=== PATIENT | female | born 1955 | race Caucasian/White ===

== ENCOUNTER → 2017-12-16 | Outpatient (CLI) | payer OTHER ==
[~2017-12-16] MED LIST: ARIMIDEX; ASPIRIN81 M2; CALCIUM 500 +1 EAC4 PO; CLEOCIN HCL300 MG; CORTEF5 MG PO; FOSAMAX 70 MG T70 MG; KEYTRUDA50 MG IV; LEVOTHYROXINE0.05 MG PO; MULTIVITAMINS1 EAC7 PO; PAXIL20 MG PO; PERCOCET 5-3251 EACH PO; PHENERGAN TOP; PREDNISONE 20 M20 MG PO; PROTONIX40 M1 PO
== END ==
LOC: M.LAB 07:10
DX: C43.9 Malignant melanoma of skin, unspecified (principal)

== ENCOUNTER → 2018-03-08 | Outpatient (CLI) | payer OTHER | LOC: M.RAD 08:01 | DX: Z12.31 Encounter for screening mammogram for malignant neoplasm of breast (principal) ==

== ENCOUNTER → 2019-04-06 | Outpatient (CLI) | payer OTHER | LOC: M.RAD 10:00 | DX: Z12.31 Encounter for screening mammogram for malignant neoplasm of breast (principal) ==

== ENCOUNTER → 2019-05-11 | Outpatient (CLI) | payer OTHER | LOC: M.RAD 11:36 | DX: C43.9 Malignant melanoma of skin, unspecified (principal); C50.911 Malignant neoplasm of unspecified site of right female breast ==

== ENCOUNTER → 2019-05-30 | Outpatient (CLI) | payer OTHER | LOC: M.RAD 15:23 | DX: M85.89 Other specified disorders of bone density and structure, multiple sites (principal) ==

== ENCOUNTER → 2019-08-29 | Outpatient (CLI) | payer OTHER | LOC: M.RAD 13:20 | DX: C79.9 Secondary malignant neoplasm of unspecified site (principal); J15.8 Pneumonia due to other specified bacteria ==

== ENCOUNTER 2019-10-29 16:07 | Emergency (ER) | payer MEDICARE ==
[~2019-10-29] VITALS: Ht 160 cm; Wt 71.7 kg
[2019-10-29] MEDS ORDERED: PREDNISONE 10 M10 M1 PO (16:26)
[2019-10-29 17:01] LABS: ABSOLUTE BASOPHILS 0.1 thou/uL (0.0-0.2); ABSOLUTE LYMPHOCYTES 1.1 thou/uL (0.8-5.3); ABSOLUTE MONOCYTES 0.4 thou/uL (0.0-1.2); ABSOLUTE NEUTROPHILS 8.2 thou/uL (1.6-8.1); BASOPHILS 0.8 %; EOSINOPHILS 0.3 %; HEMATOCRIT 43.8 % (37.0-47.0); HEMOGLOBIN 15.1 gm/dL (12.0-15.0); LYMPHOCYTES 11.7 %; MCH 32.1 pg (26.0-34.0); MCHC 34.4 g/dL (28.0-37.0); MCV 93.3 fL (80.0-100.0); MONOCYTES 4.5 %; NUCLEATED RBCS 0 /100WBC; PLATELET COUNT* 267 thou/uL (150-400); POLYS 82.7 %; RBC 4.69 mil/uL (4.20-5.00); RDW-CV 12.7 % (10.5-14.5); WBC 9.9 thou/uL (4.0-11.0)
[2019-10-29 17:05] LABS: CALCIUM 9.9 mg/dL (8.5-10.1); CREATININE 1.1 mg/dL (0.6-1.3); POTASSIUM 4.1 mmol/L (3.5-5.1)
[2019-10-29 17:09] LABS: ALBUMIN 4.1 g/dL (3.4-5.0); TOTAL BILIRUBIN 0.3 mg/dL (<0.1-1.0); TOTAL PROTEIN 7.8 g/dL (6.4-8.2)
[2019-10-29 18:23] VITALS: BP 145/74
--- NOTE | 2019-10-30 17:07 | EKG ---
[place] [address] ELECTROCARDIOGRAM REPORT Name: JADE KNIGHT Room: [facility] ([place], [place])#: [id number] Admission: 10/29/19 Attend Phys: Discharge: 10/29/19 Date of : 51 Report #: [id number] THIS REPORT FOR: //name// [facility] ED Test Date: 2019-10-29 Test Time: 17:14:34 Pat Name: JADE KNIGHT Department: Room: Gender: F Clinician Oncology: TJ : 1955 Requested By: Carly Seals Order Number: [id number] MD: Luc Alanis Measurements Intervals [place] Rate: 71 P: 2 CT: 124 QRS: -10 QRSD: 86 T: 33 QT: 388 QTc: 422 Interpretive Statements Sinus rhythm Low voltage, precordial leads Compared to ECG 07/23/2016 16:24:53 No significant changes Electronically Signed On 10-30-2019 17:06:31 [employer] by Luc Alanis [email or web address] <ELECTRONICALLY SIGNED> By: Luc Alanis MD, [facility] 10/30/19 1706 171 13 Luc Alanis MD, FACC /EPI
== END 2019-10-29 18:23 | disposition home or self-care (01) ==
LOC: M.ERS 16:07
PROVIDERS: Personal Emergency Response Attendant
DX: K62.5 Hemorrhage of anus and rectum (principal); Z87.891 Personal history of nicotine dependence; Z88.1 Allergy status to other antibiotic agents; Z88.0 Allergy status to penicillin; Z88.2 Allergy status to sulfonamides; Z85.3 Personal history of malignant neoplasm of breast

== ENCOUNTER → 2020-07-30 | Outpatient (CLI) | payer MEDICARE ==
[~2020-07-30] MED LIST changes: +PREDNISONE 10 M10 M1 PO
== END ==
LOC: M.RAD 13:17
PROVIDERS: ATTEND Internal Medicine Hematology & Oncology
DX: Z12.31 Encounter for screening mammogram for malignant neoplasm of breast (principal); Z85.3 Personal history of malignant neoplasm of breast

== ENCOUNTER → 2020-09-09 | Outpatient (CLI) | payer MEDICARE | LOC: M.RAD 13:42 | PROVIDERS: ATTEND Internal Medicine | DX: R06.02 Shortness of breath (principal) ==

== ENCOUNTER → 2020-09-25 | Outpatient (CLI) | payer MEDICARE ==
--- NOTE | 2020-09-25 15:26 | 2DMMODE ---
[place] [address] 2 D/M-MODE ECHOCARDIOGRAM Name: JADE KNIGHT Room: [facility]#: [id number] Admission: 09/25/20 Attend Phys: Vic Benedict, Discharge: Date of : 51 Date of Service: 09/25/20 1526 Report #: [id number] THIS REPORT FOR: cc: Vic Benedict MD, Dean L. MD Blick,Jonny Watts MD [facility] ~ APPROVED REPORT Study performed: 09/25/2020 12:32:49 EXAM: Comprehensive 2D, Doppler, and color-flow Echocardiogram Patient Location: Out-Patient BSA: 1.72 HR: 95 bpm BP: 140/80 mmHg Other Information Study Quality: Fair Indications Dyspnea 2D Dimensions IVSd: 15.48 (7-11mm) LVOT Diam: 20.69 (18-24mm) LVDd: 34.49 mm PWd: 9.73 (7-11mm) Ascending Ao: 29.23 (22-36mm) LVDs: 22.07 (25-40mm) Aortic Root: 32.09 mm Volumes Left Atrial Volume (Systole) LA ESV Index: 11.30 mL/m2 Aortic Valve AoV Peak Kevin.: 1.01 m/s AO Peak Gr.: 4.12 mmHg LVOT Max P.81 mmHg AO Mean Gr.: 2.22 mmHg LVOT Mean P.18 mmHg LVOT Max V: 1.10 m/s AO V2 VTI: 16.12 cm LVOT Mean V: 0.67 m/s STEPHANIE (VTI): 3.48 cm2 LVOT V1 VTI: 16.66 cm Mitral Valve E/A Ratio: 0.37 [place] [address] 2 D/M-MODE ECHOCARDIOGRAM Name: JADE KNIGHT Room: [facility]#: [id number] Admission: 09/25/20 Attend Phys: Vic Benedict, Discharge: Date of : 51 Date of Service: 09/25/20 1526 Report #: [id number] MV Decel. Time: 116.03 ms MV E Max Kevin.: 0.33 m/s MV PHT: 33.65 ms MVA (PHT): 6.54 cm2 TDI E/Lateral E': 4.13 E/Medial E': 3.67 Medial E' Kevin.: 0.09 m/s Lateral E' Kevin.: 0.08 m/s Pulmonary Valve PV Peak Kevin.: 0.64 m/s PV Peak Gr.: 1.65 mmHg Left Ventricle The left ventricle is normal size. endocardium was not well visualized making segmental wall motion analysis difficult There is normal left ventricular wall thickness. Left ventricular systolic function is normal. The left ventricular ejection fraction is within the normal range. LVEF is 55-60%. Grade I - abnormal relaxation pattern. Right Ventricle The right ventricle is normal size. The right ventricular systolic function is normal. Atria The left atrium size is normal. The right atrium size is normal. Aortic Valve The aortic valve is normal in structure. Mild aortic regurgitation. There is no aortic valvular stenosis. Mitral Valve The mitral valve is normal in structure. There is no mitral valve regurgitation noted. No evidence of mitral valve stenosis. Tricuspid Valve The tricuspid valve is normal in structure. There is no tricuspid valve regurgitation noted. Pulmonic Valve Pulmonic valve is not well visualized. There is no pulmonic valvular regurgitation[place] [address] 2 D/M-MODE ECHOCARDIOGRAM Name: JADE KNIGHT Room: [facility]#: [id number] Admission: 09/25/20 Attend Phys: Vic Benedict, Discharge: Date of : 51 Date of Service: 09/25/20 1526 Report #: [id number] The aortic root is normal in size. IVC is normal in size and collapses >50% with inspiration. Pericardium There is no pericardial effusion. <Conclusion> Left ventricular systolic function is normal. The left ventricular ejection fraction is within the normal range. <ELECTRONICALLY SIGNED> By: Jonny Smith MD, FACC 09/25/20 1526 1526 1526 Jonny Smith MD, [facility] /INF
== END ==
LOC: M.CRD 12:40
PROVIDERS: ATTEND Internal Medicine
DX: I35.1 Nonrheumatic aortic (valve) insufficiency (principal); I51.89 Other ill-defined heart diseases

== ENCOUNTER → 2020-10-21 | Outpatient (CLI) | payer MEDICARE | LOC: M.MRI 08:12 | PROVIDERS: ATTEND Internal Medicine Hematology & Oncology | DX: C43.9 Malignant melanoma of skin, unspecified (principal); R42 Dizziness and giddiness; R11.2 Nausea with vomiting, unspecified ==